=== PATIENT | female | born 1985 | race Caucasian/White ===

== ENCOUNTER 2017-01-05 11:18 | Inpatient (IN) | payer MEDICAID, OTHER ==
--- NOTE | 2017-01-05 12:11 | ED ---
Psych HPI - General Chief Complaint: Psychiatric Symptoms Stated Complaint: SUCIDAL Time Seen by Provider: 01/05/17 11:43 Source: patient Mode of arrival: ambulatory - History of Present Illness Initial Comments: 31 years old female has a long history of depression she has been on antidepressants for a long time and recent changes in her medications she has a counselor on board in psychiatrist no medications were discontinued no new medications added recently 2 months ago she was told him about the period she has pronounced struggling with suicidal ideation recently and now it has gone worse in intensity she been thinking about overdosing on her medications she does have a history of self-harm in the past. Review of system is unremarkable otherwise - Related Data Home Medications Medication Instructions Recorded Confirmed Fenofibrate [Lofibra] 145 mg PO DAILY 01/05/17 01/05/17 Levothyroxine Sodium [Synthroid] 137 mcg PO DAILY@0630 01/05/17 01/05/17 Meloxicam [Mobic] 15 mg PO DAILY 01/05/17 01/05/17 buPROPion HCL [Wellbutrin XL] 150 mg PO DAILY 01/05/17 01/05/17 clonazePAM [KlonoPIN] 0.5 mg PO BID 01/05/17 01/05/17 lamoTRIgine [LaMICtal] 150 mg PO HS 01/05/17 01/05/17 metFORMIN HCL [Glucophage] 500 mg PO BID 01/05/17 01/05/17 Previous Rx's Medication Instructions Recorded Ergocalciferol [Vitamin D2 50,000 unit PO Porter@1200 cap 02/28/16 (DRISDOL)] Escitalopram [Lexapro] 20 mg PO DAILY #30 tab 02/28/16 traZODone HCL [Desyrel] 100 mg PO HS tab 02/28/16 Allergies Allergy/AdvReac Type Severity Reaction Status Date / Time quetiapine fumarate AdvReac Severe Hallucinati Verified 01/05/17 12:43 [From Seroquel] ons gabapentin [From Neurontin] AdvReac Unknown Unknown Verified 01/05/17 12:43 black sutures Allergy Unknown Uncoded 01/05/17 11:27 Review of Systems ROS Statement: Those systems with pertinent positive or pertinent negative responses have been documented in the HPI. ROS Other: All systems not noted in ROS Statement are negative. Past Medical History Past Medical History: Diabetes Mellitus, Hyperlipidemia, Hypertension, Thyroid Disorder Additional Past Medical History / Comment(s): Degenerative Disk Disease History of Any Multi-Drug Resistant Organisms: None Reported Past Surgical History: Section, Tonsillectomy Additional Past Surgical History / Comment(s): [place] teeth Past Anesthesia/Blood Transfusion Reactions: No Reported Reaction Past Psychological History: Anxiety, Bipolar, Depression Smoking Status: Never smoker Past Alcohol Use History: Occasional Past Drug Use History: None Reported - Past Family History Mother Family Medical History: Congestive Heart Failure (CHF), Thyroid Disorder Additional Family Medical History / Comment(s): Mother is age 54 with history of depression, bipolar, degenerative disc disease, hypothyroidism, heart failure Father Family Medical History: Coronary Artery Disease (CAD), Diabetes Mellitus, Musculoskeletal Disorder, Thyroid Disorder Additional Family Medical History / Comment(s): Father is alive at age 53-year- old with history of diabetes mellitus type 2 and Charcot foot, hypothyroidism, [place] 2, coronary artery disease with stent placement, Depression Son(s) Additional Family Medical History / Comment(s): Patient has one son. He has ADHD Sister(s) Additional Family Medical History / Comment(s): Patient has 1 sister with history of systemic lupus erythematous, fibromyalgia, diabetes mellitus type 1. Patient does not have any brothers. General Exam - General Exam Comments Initial Comments: General: The patient is awake and alert, in no distress, and does not appear acutely ill. Skin: Skin is warm and dry and no rashes or lesions are noted. Eye: Pupils are equal, round and reactive to light, extra-ocular movements are intact; there is normal conjunctiva bilaterally. Ears, nose, mouth and throat: There are moist mucous membranes and no oral lesions. Neck: The neck is supple, there is no tenderness or JVD. Cardiovascular: There is a regular rate and rhythm. No murmur, rub or gallop is appreciated. Respiratory: To auscultation bilateral, no wheezing no rhonchi no distress respiratory neal noticed Gastrointestinal: Soft, non-distended, non-tender abdomen without masses or organomegaly noted. There is no rebound or guarding present. Bowel sounds are unremarkable. Back: There is no tenderness to palpation in the midline. There is no obvious deformity. Musculoskeletal: Normal ROM, no tenderness, There is no pedal edema. There is no calf tenderness or swelling. No cords were appreciated. Neurological: CN II-XII intact, Cranial nerves III through XII are intact. There are no obvious motor or sensory deficits. Coordination appears grossly intact. Speech is normal. Psychiatric: Cooperative, appropriate mood, does admit to suicidal ideation she stating that she wanted to overdose with her prescription medications Limitations: no limitations Course Vital Signs 01/05/17 01/05/17 11:21 13:48 Temperature 97.3 F L Pulse Rate 79 89 Respiratory 18 18 Rate Blood Pressure 138/91 149/91 O2 Sat by Pulse 93 L 98 Oximetry And centering on history of depression and seems like it is getting worse and suicidal ideation with a consult department of psychiatry Medical Decision Making - Lab Data Lab Results 01/05/17 Range/Units 12:07 Urine Opiates Screen Not Detected (NotDetected) Ur Oxycodone Screen Not Detected (NotDetected) Urine Methadone Screen Not Detected (NotDetected) Ur Propoxyphene Screen Not Detected (NotDetected) Ur Barbiturates Screen Not Detected (NotDetected) U Tricyclic Antidepress Not Detected (NotDetected) Ur Phencyclidine Scrn Not Detected (NotDetected) Ur Amphetamines Screen Not Detected (NotDetected) U Methamphetamines Scrn Not Detected (NotDetected) U Benzodiazepines Scrn Not Detected (NotDetected) Urine Cocaine Screen Not Detected (NotDetected) U Marijuana (THC) Screen Not Detected (NotDetected) Disposition Clinical Impression: Suicidal ideation, Planning to commit suicide Disposition: ADMITTED IP TO THIS [facility] Condition: Good Referrals: Dell Adams MD [Primary Care Provider] - 1-2 days
[2017-01-05] MEDS ORDERED: MAGNESIUM HYDROXIDE 2,400 MG/10 ML CUP PO PRN (13:51)
[2017-01-05] MEDS ORDERED: MAG HYDROX/AL HYDROX/SIMETH 30 ML CUP PO PRN (13:51)
[2017-01-05] MEDS ORDERED: ACETAMINOPHEN TAB 325 MG TAB PO PRN (13:51)
[2017-01-05] MEDS ORDERED: clonazePAM 0.5 MG TAB PO PRN (15:39)
[2017-01-05 17:54] LABS: Glucose,Whole Blood 78 mg/dL (75-99)
[2017-01-05] MEDS: metFORMIN 500 MG TAB PO SCH (18:12)
[2017-01-05] MEDS: MELOXICAM 7.5 MG TAB PO SCH (18:12)
[2017-01-05] MEDS: lamoTRIgine 25 MG TAB PO SCH (20:56)
[2017-01-05] MEDS: lamoTRIgine 100 MG TAB PO SCH (20:56)
[2017-01-05 21:04] LABS: Glucose,Whole Blood 87 mg/dL (75-99)
[2017-01-06 06:24] LABS: Glucose,Whole Blood 97 mg/dL (75-99)
[2017-01-06] MEDS: FENOFIBRATE 160 MG TAB PO SCH (08:53)
[2017-01-06] MEDS: metFORMIN 500 MG TAB PO SCH ×2 (08:53→17:25)
[2017-01-06] MEDS: MELOXICAM 7.5 MG TAB PO SCH (08:53)
[2017-01-06] MEDS: buPROPion XL 150 MG TAB.ER.24H PO SCH (08:53)
[2017-01-06] MEDS: FLUoxetine HCL 20 MG CAP PO SCH (11:17)
[2017-01-06] MEDS ORDERED: ERGOCALCIFEROL 50,000 UNIT CAP PO SCH (12:00)
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
[2017-01-06] MEDS: lamoTRIgine 100 MG TAB PO SCH ×2 (21:31→21:32)
[2017-01-06] MEDS: lamoTRIgine 25 MG TAB PO SCH (21:32)
[2017-01-07 00:31] VITALS: RESP 16
[2017-01-07] MEDS: LEVOTHYROXINE 137 MCG TAB PO SCH ×2 (02:39→06:05)
[2017-01-07 05:55] LABS: Glucose,Whole Blood 100 mg/dL (75-99)
[2017-01-07 08:20] LABS: Basophils # (A) 0.1 k/uL (0-0.2); Basophils % (A) 1 %; CH 25.8; CHCM 32.2; Eosinophils % (A) 0 %; HCT 45.7 % (34.0-46.0); HDW 3.02; HGB 15.4 gm/dL (11.4-16.0); Hypochromasia Slight; Luc # (Auto) 0.21; Luc % (Auto) 2; Lymphocytes # (A) 2.4 k/uL (1.0-4.8); Lymphocytes % (A) 22 %; MCH 27.1 pg (25.0-35.0); MCHC 33.6 g/dL (31.0-37.0); MCV 80.7 fL (80.0-100.0); Mean Platelet Volume 7.8; Monocytes # (A) 0.7 k/uL (0-1.0); Monocytes % (A) 6 %; Neutrophils # (A) 7.6 k/uL (1.3-7.7); Neutrophils % (A) 69 %; RBC 5.66 m/uL (3.80-5.40); RDW 14.8 % (11.5-15.5)
[2017-01-07] MEDS: FENOFIBRATE 160 MG TAB PO SCH (08:47)
[2017-01-07] MEDS: metFORMIN 500 MG TAB PO SCH ×2 (08:47→18:18)
[2017-01-07] MEDS: buPROPion XL 150 MG TAB.ER.24H PO SCH (08:47)
[2017-01-07] MEDS: FLUoxetine HCL 20 MG CAP PO SCH (08:47)
[2017-01-07] MEDS: MELOXICAM 7.5 MG TAB PO SCH (08:48)
--- NOTE | 2017-01-07 09:41 | P.PN ---
Progress Note - Text Interval history: The patient is found in group she follows me to an interview room. She reports that she had some difficulty sleeping last night and feels tired. Her did visit she felt that was a productive conversation. She met with the child welfare social worker yesterday and they discussed her participating in some outside activity to generate feelings of productivity and self worth. We spent some time this morning utilizing cognitive behavioral techniques to examine how she looks at certain situations and she demonstrated she has more pessimistic automatic thoughts. We are initiating the Prozac in place of Lexapro. She has no questions regarding her medications at this time. Mental status exam: The patient is a morbidly obese female appearing her stated age. She seated calmly eye contacts appropriate she is pleasant cooperative soft-spoken. She reports a depressed mood she reports ongoing suicidal thoughts. She feels that she is able to control her thoughts of self injury while in the hospital. She reports no homicidal ideation there is no report of auditory or visual hallucinations no specific delusions. Thought process is linear she demonstrates no tangential thinking loose associations or flight of ideas. She demonstrates no verbal or physical aggressiveness. She remains oriented to person place and date. Insight and judgment limited. Plan: The patient will continue on her current psychotropic medications we have just initiated Prozac. We'll monitor her vitals monitor her for safety she is encouraged to continue participating in the milieu. She discussed starting to journal some of her feelings and stressful situations.
--- NOTE | 2017-01-07 10:23 | CONS ---
DATE OF CONSULTATION: REASON FOR CONSULTATION: Medical management of hyperlipidemia, hypothyroidism and multiple other medical problems including diabetes mellitus. HISTORY OF PRESENT ILLNESS: Ms. Slater is a 31-year-old female with known history of depression, hyperlipidemia, morbid obesity, hypothyroidism, and recently diagnosed diabetes type 2 who has been on antidepressants for a long time. Apparently came to the hospital as she was having suicidal ideation recently. It has gotten worse in intensity and she has been thinking about overdosing on her medications and she does have a history of self harm in the past. Otherwise, currently patient denied any complaints of chest pain, short of breath. No recent illnesses or sick contact at home. No recent travel. REVIEW OF SYSTEMS: CONSTITUTIONAL: No fever. No chills. RESPIRATORY: No cough or sputum production. CARDIOVASCULAR: No chest pain or shortness of breath. ABDOMEN: No nausea or abdominal pain. GENITOURINARY: Negative. ENDOCRINE: Negative. PSYCHIATRIC: Depressed. SKIN: Negative. All other fourteen point review of systems negative except as above. PAST MEDICAL HISTORY: Hyperlipidemia, hypertension, hypothyroidism, recently diagnosed diabetes type 2, degenerative disc disease. PAST SURGICAL HISTORY: , tonsillectomy, aneurysm removal. PSYCHOSOCIAL HISTORY: Anxiety, bipolar and depression. SOCIAL HISTORY: Patient never a smoker, occasional alcohol use. Denied any drugs or IVDU. FAMILY HISTORY: Mother has congestive heart failure and thyroid disorder. Mother is at age 54 with a history of depression, bipolar, degenerative disc disease and hypothyroidism and heart failure. Father had coronary artery disease, diabetes mellitus and musculoskeletal disorder, ( ) disorder. Son has ADHD. ALLERGIES: SEROQUEL, NEURONTIN AND BLACK SUTURES. HOME MEDICATIONS: Fenofibrate, levothyroxine, meloxicam, bupropion, clonazepam, lamotrigine, metformin, vitamin D2, Lexapro and Desyrel. PHYSICAL EXAMINATION: A 31-year-old female lying in bed comfortably, awake, alert and oriented x3. The patient is morbidly obese. VITALS: Blood pressure is 147/60, pulse is 63, respirations 18, temperature afebrile, pulse ox 95% on room air. HEENT: Atraumatic, normocephalic. Neck is supple. No JVD. CVS: S1, S2 heard. No murmurs, no gallop. LUNGS: Bilateral air entry is present. No wheezing. No crackles. Nonlabored breathing. ABDOMEN: Soft, nontender. Bowel sounds are present. REPAIR TECH: Alert and oriented x3. No focal deficits. EXTREMITIES: No edema. Pulses are palpable bilaterally. No clubbing or cyanosis. PSYCHIATRIC: Cooperative. LABORATORY DATA: Not available at this time. UDS is negative. IMPRESSION: 1. Depression with suicidal ideation with plan to cut herself. 2. History of depression. 3. Hypertension. 4. Hyperlipidemia. 5. Morbid obesity with body mass index 62.7. 6. Hypothyroidism. 7. Recently diagnosed diabetes type 2, [id number]. 8. Vitamin D deficiency. 9. Degenerative disc disease. DISCUSSION AND PLAN: Patient will be continued on antidepressant medication as per Psychiatry. Will continue the home medications. Blood pressure is controlled. Check CBC, BMP and TSH level. Continue to follow closely. Further recommendations based on the clinical course. Thank you for the consult.
[2017-01-07 10:33] LABS: Anion Gap 19 mmol/L; Calcium 9.9 mg/dL (8.4-10.2); Carbon Dioxide 15 mmol/L (22-30); Chloride 109 mmol/L (98-107); Glucose 102 mg/dL (74-99); Non-African American GFR(MDRD) 58 (>60 ml/min/1.73 sqM); Sodium 143 mmol/L (137-145); Total Bilirubin 0.9 mg/dL (0.2-1.3)
[2017-01-07 10:34] LABS: ALT 30 U/L (9-52); AST 45 U/L (14-36); Alkaline Phosphatase 72 U/L (38-126); Blood Urea Nitrogen 13 mg/dL (7-17); Potassium 5.1 mmol/L (3.5-5.1); Total Protein 7.3 g/dL (6.3-8.2)
[2017-01-07 11:32] LABS: Hemoglobin A1C 5.4 % (4.2-6.1)
[2017-01-07 17:15] LABS: Glucose,Whole Blood 87 mg/dL (75-99)
[2017-01-07] MEDS: lamoTRIgine 25 MG TAB PO SCH (20:56)
[2017-01-08] MEDS: LEVOTHYROXINE 137 MCG TAB PO SCH (06:12)
[2017-01-08 06:30] LABS: Glucose,Whole Blood 97 mg/dL (75-99)
[2017-01-08] MEDS: MELOXICAM 7.5 MG TAB PO SCH (08:09)
[2017-01-08] MEDS: FLUoxetine HCL 20 MG CAP PO SCH (08:09)
[2017-01-08] MEDS: buPROPion XL 150 MG TAB.ER.24H PO SCH (08:09)
[2017-01-08] MEDS: metFORMIN 500 MG TAB PO SCH ×2 (08:09→17:41)
[2017-01-08] MEDS: FENOFIBRATE 160 MG TAB PO SCH (08:09)
--- NOTE | 2017-01-08 09:52 | P.PN ---
Progress Note - Text Interval history: The patient is found in group she follows me to an interview room. She reports that her mood is still down she is frequently tearful and states "I feel lost". She reports struggling with sleep last night and request that we restart her trazodone. She has been attending groups and meals. She did speak with her and son via phone last evening. Mental status exam: The patient is an overweight female appearing her stated age. She is dressed in her own clothing hygiene grooming are adequate. Speech is fluent spontaneous nonpressured. She reports her mood is depressed she feels hopeless she continues to have suicidal thoughts as recently as last evening. No homicidal ideation. The patient is tearful throughout our session today. Thought process is linear and goal-directed she demonstrates no tangential thinking loose associations or flight of ideas. There is no evidence of psychosis hypomania or kishan. She demonstrates no verbal or physical aggressiveness. She remains oriented to person place and date. Plan: The patient will continue on her current psychotropic medications we will restart the trazodone 100 mg at bedtime to assist with sleep. She will continue participating in the milieu. She has not demonstrated sufficient psychiatric improvement to facilitate a discharge. Vital signs reviewed.
[2017-01-08 20:26] VITALS: BMI 62.6
[2017-01-08] MEDS: lamoTRIgine 100 MG TAB PO SCH (21:00)
[2017-01-08] MEDS: lamoTRIgine 25 MG TAB PO SCH (21:00)
[2017-01-08] MEDS: traZODone HCL 100 MG TAB PO SCH (21:00)
[2017-01-09] MEDS: LEVOTHYROXINE 137 MCG TAB PO SCH (05:48)
[2017-01-09 05:53] LABS: Glucose,Whole Blood 88 mg/dL (75-99)
[2017-01-09 06:30] VITALS: TEMP 97.7
[2017-01-09] MEDS: metFORMIN 500 MG TAB PO SCH ×2 (09:34→17:53)
[2017-01-09] MEDS: buPROPion XL 150 MG TAB.ER.24H PO SCH (09:34)
[2017-01-09] MEDS: FLUoxetine HCL 20 MG CAP PO SCH (09:34)
[2017-01-09] MEDS: MELOXICAM 7.5 MG TAB PO SCH (09:34)
[2017-01-09] MEDS: FENOFIBRATE 160 MG TAB PO SCH (09:36)
--- NOTE | 2017-01-09 09:58 | P.PN ---
Progress Note - Text Interval history: The patient is found in group she follows me to an interview room. She reports that her mood is much improved today. She was able to sleep last night. She had a productive family meeting with her this morning. Social work notes were reviewed. She discussed coping skills that she may utilize upon discharge and she was glad that her will manage her medications for her upon discharge. The patient has been attending groups and participating in meals. Mental status exam: The patient is an overweight female she is dressed in her own clothing hygiene grooming are adequate. She reports her mood is better area affect is brighter. She is reporting no acute suicidal or homicidal ideation today. She is endorsing no self-injurious thoughts. No report or evidence of psychosis she does not present hypomanic or manic. Thought process is linear she demonstrates no tangential thinking loose associations or flight of ideas. She remains oriented to person place and date. She demonstrates no verbal or physical aggressiveness. Plan: The patient will continue on her current medications. She may be appropriate for discharge in the next 1-2 days depending on her clinical progress. Vital signs reviewed. She is encouraged to continue participating in the milieu.
[2017-01-09] MEDS: lamoTRIgine 25 MG TAB PO SCH (21:34)
[2017-01-09] MEDS: lamoTRIgine 100 MG TAB PO SCH (21:34)
[2017-01-09] MEDS: traZODone HCL 100 MG TAB PO SCH (21:34)
[2017-01-10] MEDS: LEVOTHYROXINE 137 MCG TAB PO SCH (06:31)
[2017-01-10 06:40] LABS: Glucose,Whole Blood 102 mg/dL (75-99)
[2017-01-10 07:05] VITALS: BP 133/68; PULSE 73
[2017-01-10] MEDS: metFORMIN 500 MG TAB PO SCH (07:50)
[2017-01-10] MEDS: FLUoxetine HCL 20 MG CAP PO SCH (08:59)
[2017-01-10] MEDS: FENOFIBRATE 160 MG TAB PO SCH (08:59)
[2017-01-10] MEDS: MELOXICAM 7.5 MG TAB PO SCH (08:59)
[2017-01-10] MEDS: buPROPion XL 150 MG TAB.ER.24H PO SCH (08:59)
--- NOTE | 2017-01-10 10:07 | P.DS ---
Providers Date of admission: 01/05/17 15:05 Expected date of discharge: 01/10/17 Attending physician: Tony Bentley Consults: 01/05/17 13:51 Consult Physician Routine Consulting Provider: Keyla Vidal Consult Reason/Comments: H and P and medical management Do you want consulting provider notified?: Yes Primary care physician: Dell Adams - Discharge Diagnosis(es) (1) Major depressive disorder, recurrent severe without psychotic features Current Visit: Yes Status: Acute Priority: High (2) Generalized anxiety disorder Current Visit: Yes Status: Acute Priority: Medium Hospital Course: Brief summary of admission note: This patient is a 31-year-old female who was admitted to the mental health unit through the emergency room for acute suicidal ideation. She reported she had a plan of overdosing on her psychiatric medications due to worsening symptoms of depression. She had been feeling depressed hopeless and tearful and a regular basis. She endorsed decreased appetite poor sleep fluctuating energy level. She also endorsed having generalized anxiety symptoms on a regular basis. For full details please refer to my psychiatric evaluation now. Summary of hospital course: The patient was admitted to the mental health unit she signed in voluntarily. We reviewed her presenting symptoms and medication options. We decided to discontinue the Lexapro and initiate Prozac continued the Lamictal Wellbutrin and Klonopin trazodone was added for sleep at night. The patient did participate in the milieu she demonstrated progressive improvement of symptoms while here. She participated in a family meeting with her which was supportive. Her agreed to oversee her medications. The patient was seen by the finger cobbler for routine history and physical exam. She has reported a marked improvement over the last 48 hours and feels she is stable for discharge. Mental status exam: The patient is an overweight female appearing her stated age she is dressed in her own clothing hygiene and grooming are good. Speech is fluent spontaneous nonpressured. She reports her mood is "better" her affect is euthymic she hasn't appropriately expressive range of affect. She is reporting no hopelessness thinking she is reporting no suicidal or homicidal ideation intent or plan. She is endorsing no auditory or visual hallucinations or specific delusions there is no evidence of psychosis. She does not appear hypomanic or manic. Insight and judgment are grossly intact cognitively she is grossly intact. She demonstrates no verbal or physical aggressiveness. Impressions 1. Major depressive disorder recurrent severe without psychosis, generalized anxiety disorder 2. Cluster B traits 3. Hypothyroidism hyperlipidemia vitamin D deficiency by history 4. Foreclosure of home, financial concerns Plan: The patient will be discharged mental health unit today she will return home residing with her parents. She will continue on Prozac 20 mg daily Lamictal 150 mg at bedtime Wellbutrin XL 150 mg in the morning trazodone 100 mg at bedtime Klonopin 0.5 mg twice daily as needed. Social work will confirm her appointments with her existing therapist and psychiatrist. There is no imminent safety risk she is appropriate for transition to outpatient care. She is instructed to return to the hospital with any acute safety concerns. Patient Condition at Discharge: Stable Plan - Discharge Summary New Discharge Prescriptions: New FLUoxetine HCL [PROzac] 20 mg PO DAILY #30 cap Continue Ergocalciferol [Vitamin D2 (DRISDOL)] 50,000 unit PO Porter@1200 cap metFORMIN HCL [Glucophage] 500 mg PO BID Meloxicam [Mobic] 15 mg PO DAILY Fenofibrate [Lofibra] 145 mg PO DAILY Levothyroxine Sodium [Synthroid] 137 mcg PO DAILY@0630 buPROPion HCL [Wellbutrin XL] 150 mg PO DAILY #30 clonazePAM [KlonoPIN] 0.5 mg PO BID #30 lamoTRIgine [LaMICtal] 150 mg PO HS #30 traZODone HCL [Desyrel] 100 mg PO HS #30 tab Discontinued Escitalopram [Lexapro] 20 mg PO DAILY #30 tab Discharge Medication List Ergocalciferol [Vitamin D2 (DRISDOL)] 50,000 unit PO Porter@1200 cap 02/28/16 [Rx] Fenofibrate [Lofibra] 145 mg PO DAILY 01/05/17 [History] Levothyroxine Sodium [Synthroid] 137 mcg PO DAILY@0630 01/05/17 [History] Meloxicam [Mobic] 15 mg PO DAILY 01/05/17 [History] metFORMIN HCL [Glucophage] 500 mg PO BID 01/05/17 [History] FLUoxetine HCL [PROzac] 20 mg PO DAILY #30 cap 01/10/17 [Rx] buPROPion HCL [Wellbutrin XL] 150 mg PO DAILY #30 01/10/17 [Rx] clonazePAM [KlonoPIN] 0.5 mg PO BID #30 01/10/17 [Rx] lamoTRIgine [LaMICtal] 150 mg PO HS #30 01/10/17 [Rx] traZODone HCL [Desyrel] 100 mg PO HS #30 tab 01/10/17 [Rx] Follow up Appointment(s)/Referral(s): [facility] [Outside] - 01/11/17 2:00 pm (Carol) Dell Adams MD [Primary Care Provider] - 1-2 days
== END 2017-01-10 12:16 | disposition home or self-care (01) | DRG 885 ==
LOC: EC 11:18 → SUPCPDRO 11:18 → 3MHU 13:25 → UNDOADMIN 13:25 → EC 13:58 → 3MHU 15:05
PROVIDERS: ADMIT Psychiatry & Neurology Psychiatry; ATTEND Psychiatry & Neurology Psychiatry
DX: F33.2 Major depressive disorder, recurrent severe without psychotic features (principal); R45.851 Suicidal ideations; Z68.44 Body mass index [BMI] 60.0-69.9, adult; E66.01 Morbid (severe) obesity due to excess calories; I10 Essential (primary) hypertension; E55.9 Vitamin D deficiency, unspecified; E11.9 Type 2 diabetes mellitus without complications; E03.9 Hypothyroidism, unspecified; E78.5 Hyperlipidemia, unspecified; F41.0 Panic disorder [episodic paroxysmal anxiety]; F41.1 Generalized anxiety disorder; G47.00 Insomnia, unspecified; Z79.899 Other long term (current) drug therapy; Z81.8 Family history of other mental and behavioral disorders; Z82.49 Family history of ischemic heart disease and other diseases of the circulatory system; Z91.410 Personal history of adult physical and sexual abuse; Z91.5 Personal history of self-harm; Z59.8 Other problems related to housing and economic circumstances
CPT/HCPCS: 80053; 80306; 82075; 83036; 84439; 84443; 85025